=== PATIENT | female | born 1945 | race Caucasian/White ===

== ENCOUNTER 2016-12-22 13:12 | Inpatient (IN) | payer MEDICARE ==
[2016-12-22] MEDS ORDERED: ESTRADIOL 0.1 MG TD SCH (17:45)
[2016-12-22] MEDS: HYDROcodone/Acetaminophen 10/325 mg Tablet PO PRN (20:04)
[2016-12-22] MEDS: Zolpidem Tartrate 5 MG TAB PO PRN (21:09)
[2016-12-22] MEDS: Methocarbamol 500 MG TAB PO SCH (21:09)
[2016-12-22] MEDS: Aspirin 81 mg Enteric Coated Tablet PO SCH (21:09)
--- NOTE | 2016-12-22 23:09 | HP ---
DATE OF SERVICE: 12/22/2016 HISTORY OF PRESENT ILLNESS: The patient is a 71-year-old female with a past medical histo ry of hypertension, hyperlipidemia, hypothyroidism, and avascular necrosis of the left femoral head who had left hip replacement earlier this week at [facility] in [place]. The patient was transferred to [facility] for rehab. The patient states that her pain is already improved from prior to surgery . She is able to be weightbearing as tolerated with a walker currently. She will start working wit h physical therapy done here tomorrow. The patient expresses her gratitude for me coming to see her , states that she is very happy that she had the hip replacement. The patient was found to have thais scular necrosis of left femoral head after she developed hip pain following a [facility] Her pain has slowly worsened and after regard imaging this is noted the gianna khan has been having worked up with Orthopedic Surgery. PAST MEDICAL HISTORY: 1. Hypertension. 2. Hyperlipidemia. 3. Hypothyroidism. 4. Vitamin D deficiency. 5. Obesity. PAST SURGICAL HISTORY: 1. Left hip replacement. 2. ORIF for the right leg. 3. Rotator cuff repair. MEDICATIONS: 1. Methocarbamol 750 mg p.o. at bedtime p.r.n. pain. 2. Premarin 0.625 mg vaginal cream use as directed. 3. Estradiol 0.1 mg for 24 hours, transdermal twice a week patch. 4. Fluticasone nasal spray 2 sprays each nostril daily. 5. Hydrochlorothiazide 12.5 mg p.o. daily. 6. Nature-Throid 97.5 mg p.o. q.a.m. ALLERGIES: PERCODAN. FAMILY HISTORY: Unremarkable. SOCIAL HISTORY: Patient denies tobacco or alcohol use. REVIEW OF SYSTEMS: GENERAL: Negative for fever and chills. EYES: Negative for vision changes or eye pain. HEENT: Negative for sore throat, rhinorrhea or nasal congestion. CARDIOVASCULAR: Negative for chest pain, palpitations, orthopnea and PND. RESPIRATORY: Negative for shortness of breath, wheezing, cough. GASTROINTESTINAL: Negative for nausea, vomiting, and diarrhea. GENITOURINARY: Negative for dysuria, and polyuria. MUSCULOSKELETAL: Positive for left hip pain, negative for other joint pain. SKIN: Negative for rashes or lesions. NEUROLOGIC: Negative for syncope or seizure. PSYCHIATRIC: Negative for anxiety or depression. PHYSICAL EXAMINATION: VITAL SIGNS: Temperature 97.7, pulse 75, respiratory rate 20, O2 saturation 94% on room air, blood pressure 129/59. GENERAL: The patient is awake, alert, and oriented, in no acute distress. She is currently sitting up in chair, eating dinner. HEENT: Eyes, pupils are equal, round, and reactive to light and accommodation. Extraocular muscles intact. ENT: Oropharynx and nasopharynx without erythema or exudate. NECK: Supple without lymphadenopathy, thyromegaly or bruits. CARDIOVASCULAR: Regular rate and rhythm without murmurs, gallops, or rubs. LUNGS: Clear to auscultation bilaterally without wheezing or rhonchi. ABDOMEN: Soft, nontender, nondistended, bowel sounds present. EXTREMITIES: No clubbing or cyanosis. The patient has drainage in place in the left hip. MUSCULOSKELETAL: The patient has decreased range of motion in the left hip and tenderness upon palp ation, which is appropriate following surgery. SKIN: No rashes or jaundice noted. NEUROLOGIC: Cranial nerves II through XII are grossly intact. Deep tendon reflexes 2/4. Sensation is within normal limits. PSYCHIATRIC: The patient has an appropriate mood and affect during the exam. ASSESSMENT AND PLAN: 1. Status post left hip replacement: The patient is weightbearing as tolerated. She will have to be evaluated by PT and OT tomorrow morning. We will control pain with [place]. The patient has been able to tolerate that at [facility] for pain. 2. Deconditioning: As above. 3. Hypertension: Continue HCTZ and monitor blood pressure. 4. Hypothyroidism. Continue Nature-Throid and check a TSH. 5. Patient come on twice a day aspirin for DVT prophylaxis following surgery.
[2016-12-23] MEDS: HYDROcodone/Acetaminophen 10/325 mg Tablet PO PRN ×5 (04:28→21:56)
[2016-12-23 06:17] LABS: Hemoglobin 9.7 g/dL (12.0-16.0); Mean Corpuscular HGB CONC 32.1 g/dL (32.0-36.0); Mean Corpuscular Hemoglobin 32.1 pg (27.0-31.0); Mean Platelet Volume 8.6 fL (7.4-10.4); Platelet Count 188 thou/uL (130-400); Red Blood Cell (RBC) Count 3.01 mill/uL (4.20-5.40); White Blood Cell (WBC) Count 4.8 thou/uL (4.8-10.8)
[2016-12-23 06:18] LABS: Anisocytosis SLIGHT = 6-15 cells (100X) (0-5/hpf); Eosinophils 4 % (0-10); Hypochromia SLIGHT = 6-15 cells (100X) (0-5/hpf); Lymphocytes 29 % (21-51); MDiff Complete? YES; Macrocytosis SLIGHT = 6-15 cells (100X) (0-5/hpf); Monocytes 7 % (0-10); Neutrophil 60 % (42-75); PLT Morphology Comment Appears Adequate
[2016-12-23] MEDS: Aspirin 81 mg Enteric Coated Tablet PO SCH ×2 (08:41→21:57)
[2016-12-23] MEDS: Hydrochlorothiazide 25 MG TAB PO SCH (08:41)
[2016-12-23] MEDS: Fluticasone Propionate Nasal Spray 16 gm Bottle NASAL SCH (08:49)
[2016-12-23] MEDS: ESTRADIOL 0.1 MG TOP SCH (09:05)
--- NOTE | 2016-12-23 10:26 | PRG ---
DATE OF SERVICE: 12/23/2016 CHIEF COMPLAINT: Hip replacement. SUBJECTIVE: The patient is a 71-year-old female who is at [facility] following a hip replacem ent. The patient states that she was able to sleep well overnight with the help of Ambien. The pat ottoniel states that her pain is well controlled this morning and she is sitting up in a chair waiting f or physical therapy to begin. OBJECTIVE: VITAL SIGNS: Temperature 98.8, pulse 85, respiration rate 20, O2 sat 95% on room air, blood pressur e 140/95. GENERAL: The patient is awake, alert, and oriented, in no acute distress. CARDIOVASCULAR: Regular rate and rhythm without murmurs, gallops, or rubs. LUNGS: Clear to auscultation bilaterally without wheezing or rhonchi. ABDOMEN: Soft, nontender, nondistended with bowel sounds present. EXTREMITIES: There is no clubbing or cyanosis. There is stable swelling of the left lower extremit y, following surgery. LABORATORY: 1. CBC: WBC is 4.8, hemoglobin 9.7, hematocrit 30.1, platelets 188. 2. TSH 9.752. ASSESSMENT AND PLAN: 1. Status post left hip replacement: Continue pain control. 2. Acute anemia: This is likely secondary to blood loss from her left hip surgery. We will contin ue to monitor blood counts. 3. Hypothyroidism: The patient's TSH is elevated; however, looking back, she was not given her thy roid medicine when she was hospitalized after her surgery. We are now restarting her Nature-Thyroid and we will monitor her TSH once she has restarted her medication. 4. Hypertension: Blood pressure is slightly elevated this morning. We will continue hydrochloroth iazide and adjust as needed.
[2016-12-23] MEDS: Methocarbamol 500 MG TAB PO SCH (21:56)
[2016-12-23] MEDS: Zolpidem Tartrate 5 MG TAB PO PRN (22:00)
[2016-12-24] MEDS: NATURE THYROID PO SCH (06:20)
[2016-12-24] MEDS: Aspirin 81 mg Enteric Coated Tablet PO SCH ×2 (09:21→21:55)
[2016-12-24] MEDS: Hydrochlorothiazide 25 MG TAB PO SCH (09:21)
[2016-12-24] MEDS: Fluticasone Propionate Nasal Spray 16 gm Bottle NASAL SCH (09:22)
[2016-12-24] MEDS: HYDROcodone/Acetaminophen 10/325 mg Tablet PO PRN ×4 (09:27→21:55)
[2016-12-24] MEDS: Zolpidem Tartrate 5 MG TAB PO PRN (21:55)
[2016-12-24] MEDS: Methocarbamol 500 MG TAB PO SCH (21:55)
[2016-12-25] MEDS: NATURE THYROID PO SCH (07:00)
[2016-12-25] MEDS: Hydrochlorothiazide 25 MG TAB PO SCH (08:38)
[2016-12-25] MEDS: Aspirin 81 mg Enteric Coated Tablet PO SCH ×2 (08:38→20:48)
[2016-12-25] MEDS: Fluticasone Propionate Nasal Spray 16 gm Bottle NASAL SCH (08:41)
[2016-12-25] MEDS: HYDROcodone/Acetaminophen 10/325 mg Tablet PO PRN ×4 (09:36→23:01)
[2016-12-25] MEDS: Methocarbamol 500 MG TAB PO SCH (20:48)
--- NOTE | 2016-12-25 21:11 | PRG ---
DATE OF SERVICE: 12/25/2016 CHIEF COMPLAINT: Leg pain. SUBJECTIVE: The patient is a 71-year-old female who underwent left hip replacement last . The patient was seen this morning while sitting up in a chair. She had ambulated a lap around the nurses' station with her walker. She does still have difficulty lifting her left leg up into b ed without assistance. She rates her pain as a 6/10 and is asking for pain medicine at this time. OBJECTIVE: VITAL SIGNS: Temperature 98.0, pulse 70, respiration rate 20, O2 sat 98% on room air, blood pressur e 124/59. GENERAL: The patient is awake, alert, and oriented and appears to be in mild pain. CARDIOVASCULAR: Regular rate and rhythm without murmurs, gallops, or rubs. LUNGS: Clear to auscultation bilaterally without wheezing or rhonchi. EXTREMITIES: There is no clubbing or cyanosis. The patient does have tenderness in her left hip ne ar her incision. PSYCHIATRIC: The patient displays appropriate mood and affect during the exam. ASSESSMENT AND PLAN: 1. Status post left hip replacement. Patient will be given a dose of [place] this morning as her keri n has increased after walking. The patient was able to work with therapy on Monday and is doing wel l following hip replacement. 2. Generalized deconditioning: Patient will have therapy again tomorrow morning. 3. Hypertension: Blood pressure has improved. We will continue home blood pressure medications an d adjust as needed. 4. Hypothyroidism: The patient has resumed her home thyroid medication and is feeling much better. 5. The patient remains on aspirin twice a day for DVT prophylaxis as well as BRITTNY yair.
[2016-12-25] MEDS: Zolpidem Tartrate 5 MG TAB PO PRN (23:05)
[2016-12-26] MEDS: NATURE THYROID PO SCH (06:54)
[2016-12-26] MEDS: Aspirin 81 mg Enteric Coated Tablet PO SCH ×2 (08:37→21:59)
[2016-12-26] MEDS: Hydrochlorothiazide 25 MG TAB PO SCH (08:38)
[2016-12-26] MEDS: Fluticasone Propionate Nasal Spray 16 gm Bottle NASAL SCH (08:38)
[2016-12-26] MEDS: HYDROcodone/Acetaminophen 10/325 mg Tablet PO PRN ×4 (08:39→21:59)
--- NOTE | 2016-12-26 13:20 | PRG ---
DATE OF SERVICE: 12/26/2016. CHIEF COMPLAINT: Leg pain. SUBJECTIVE: The patient a 71-year-old female status post left hip replacement last week. She has done well over the weekend. This morning short with physical therapy and was able to go up two steps. She also had a shower with the help of therapy and she is sitting up in a chair, ready to eat her lunch. She complains of increased pain after working with therapy and is asking for pain pill at this moment. The patient also notes that at nighttime, she has been experiencing itching a nd feeling like her skin is crawling. She was getting Benadryl which she had this sensation up in [place] and that resolved with the symptoms. OBJECTIVE: VITAL SIGNS: Temperature 98.8, pulse 72, respirations were 18, O2 saturation 95% on room air, blood pressure 137/71. GENERAL: The patient is awake, alert, oriented and in no acute distress. HEENT: Oropharynx is without erythema or exudates. CARDIOVASCULAR: Regular rate and rhythm without murmurs, gallops or rubs. LUNGS: Clear to auscultation bilaterally without wheezing or rhonchi. ABDOMEN: Soft, nontender, nondistended, bowel sounds present. EXTREMITIES: There is no clubbing or cyanosis. The patient does have trace lower extremity edema b ilaterally. She has BRITTNY hose in place. ASSESSMENT AND PLAN: 1. Status post left hip replacement: The patient will continue on current pain medication and give n the dose 15 minutes early and she has just been worked quite hard with therapy. 2. Generalized deconditioning; The patient is slowly able to go further stay. She is able to go u p to two steps today and made a few laps around the nurses' station. 3. Hypothyroidism: The patient's overall mood is getting a little bit better. She has resumed her Nature-Thyroid. 4. Hypertension: The patient's blood pressure remains controlled on hydrochlorothiazide. 5. Pruritus: This is likely secondary to her pain medication. We will add Benadryl as needed for the itching and work to decrease pain medication as her pain slowly improves.
[2016-12-26] MEDS ORDERED: HYDROcodone/Acetaminophen 10/325 mg Tablet PO PRN (15:40)
[2016-12-26] MEDS: Zolpidem Tartrate 5 MG TAB PO PRN (21:59)
[2016-12-26] MEDS: Methocarbamol 500 MG TAB PO SCH (21:59)
[2016-12-26] MEDS: diphenhydrAMINE HCl 25 MG CAP PO PRN (21:59)
[2016-12-27] MEDS: NATURE THYROID PO SCH (06:53)
[2016-12-27] MEDS: Ondansetron ODT 4 MG TAB PO PRN (09:08)
[2016-12-27] MEDS: Aspirin 81 mg Enteric Coated Tablet PO SCH ×3 (09:12→22:42)
[2016-12-27] MEDS: Hydrochlorothiazide 25 MG TAB PO SCH (09:12)
[2016-12-27] MEDS: Fluticasone Propionate Nasal Spray 16 gm Bottle NASAL SCH (09:13)
[2016-12-27] MEDS: HYDROcodone/Acetaminophen 10/325 mg Tablet PO PRN ×3 (12:01→22:42)
[2016-12-27] MEDS: Methocarbamol 500 MG TAB PO SCH ×2 (22:40)
[2016-12-27] MEDS: diphenhydrAMINE HCl 25 MG CAP PO PRN (22:41)
[2016-12-27] MEDS: Zolpidem Tartrate 5 MG TAB PO PRN (22:42)
--- NOTE | 2016-12-28 00:33 | PRG ---
DATE OF SERVICE: 12/27/2016 CHIEF COMPLAINT: Today, fatigue. SUBJECTIVE: The patient is a 71-year-old female status post left hip replacement. Yester day, she was complaining of increased pain and that her [place] was not lasting long enough. I increa sed it to 2 tabs as needed and she took 2 tablets this morning prior to therapy and became nauseated and spent lot of the day in bed. She was able to work with therapy and they worked on car transfer s this morning. She notes that she has some occasional stomach upset as well. OBJECTIVE: VITAL SIGNS: Temperature 99.1, pulse 74, respiration rate is 20, O2 sat 96% on room air, blood pres sure 122/60, and T-max in the past 24 hours was 99.7. GENERAL: The patient is awake, alert, and oriented, in no acute distress. CARDIOVASCULAR: Regular rate and rhythm without murmurs, gallops, or rubs. LUNGS: Clear to auscultation bilaterally without wheezing or rhonchi. ABDOMEN: Soft, nontender, nondistended. Bowel sounds present. EXTREMITIES: There is no clubbing or cyanosis. BRITTNY hose are in place. PSYCHIATRIC: The patient displays an appropriate mood and affect. ASSESSMENT AND PLAN: 1. Status post left hip replacement. We will continue therapy and pain control. 2. Generalized deconditioning and muscle weakness: The patient is working with PT and OT while at the facility. We will continue this. 3. Hypothyroidism: We will continue home thyroid medications. 4. Gastroesophageal reflux disease: We will add a PPI, the patient is on twice a day aspirin. Amber dudley also asked the nurses to make certain that her aspirin is being given with food and counseled th e patient on this as well. 5. Constipation: The patient has a stool softener already ordered and we encouraged the patient to use that. I counseled on the fact that increasing her pain medication can lead to constipation. 6. Hypertension: Blood pressures controlled this morning.
[2016-12-28] MEDS: NATURE THYROID PO SCH (06:49)
[2016-12-28] MEDS: Hydrochlorothiazide 25 MG TAB PO SCH (08:17)
[2016-12-28] MEDS: Aspirin 81 mg Enteric Coated Tablet PO SCH ×2 (08:17→21:53)
[2016-12-28] MEDS: Fluticasone Propionate Nasal Spray 16 gm Bottle NASAL SCH (08:18)
[2016-12-28] MEDS: HYDROcodone/Acetaminophen 10/325 mg Tablet PO PRN ×4 (08:19→21:54)
[2016-12-28] MEDS: Docusate 100 MG CAP PO PRN (11:59)
[2016-12-28] MEDS ORDERED: Methocarbamol 500 MG TAB PO PRN (18:41)
--- NOTE | 2016-12-28 18:53 | PRG ---
DATE OF SERVICE: 12/28/2016 SUBJECTIVE: The patient is a 71-year-old female, status post left hip replacement who is at the [facility] for rehabilitation. The patient states that she had \\\\"awful day.\\\\" The patient is g etting muscle spasms in her left thigh following therapy. She worked on steps today. One hydrocodo ne is not controlling the patient's pain; however, two hydrocodone make her too tired and sedated to work with therapy. OBJECTIVE: VITAL SIGNS: Temperature 98.9, pulse 74, respiratory rate 20, O2 sat 97% on room air and blood pres sure 121/58. GENERAL: The patient is awake, alert and oriented, in no acute distress. CARDIOVASCULAR: Regular rate and rhythm without murmurs, gallops or rubs. LUNGS: Clear to auscultation bilaterally without wheezing or rhonchi. ABDOMEN: Soft, nontender and nondistended with bowel sounds present. EXTREMITIES: There is no clubbing or cyanosis. The patient has BRITTNY hose in place. PSYCHIATRIC: The patient displays an appropriate mood and affect during the exam. ASSESSMENT AND PLAN: 1. Status post left hip replacement: The patient is on aspirin for deep vein thrombosis prophylaxi s following surgery. I think the patient would benefit from an NSAID to help control her pain witho ut causing sedation, but we will monitor this closely. We will also add Robaxin that can be taken w ith therapy. It may help with the muscle spasms as well. 2. Deconditioning: The patient's strength is slowly improving and she is able to go increasingly f urther distances each day. 3. Hypertension: The patient's blood pressure is well controlled. 4. Hypothyroidism. We will continue her home medications. 5. Gastrointestinal prophylaxis: We will add a proton pump inhibitor as the patient has continued on aspirin. 6. Deep venous thrombosis prophylaxis with BRITTNY hose and aspirin b.i.d.
[2016-12-28] MEDS: Methocarbamol 500 MG TAB PO SCH (21:54)
[2016-12-28] MEDS: Zolpidem Tartrate 5 MG TAB PO PRN (21:54)
[2016-12-28] MEDS: diphenhydrAMINE HCl 25 MG CAP PO PRN (21:57)
[2016-12-29] MEDS: NATURE THYROID PO SCH (05:49)
[2016-12-29] MEDS: Hydrochlorothiazide 25 MG TAB PO SCH (08:32)
[2016-12-29] MEDS: Aspirin 81 mg Enteric Coated Tablet PO SCH ×2 (08:33→17:05)
[2016-12-29] MEDS: HYDROcodone/Acetaminophen 10/325 mg Tablet PO PRN ×2 (08:34→13:07)
[2016-12-29] MEDS: Ketorolac Tromethamine 30 MG/ML VIAL IM PRN (08:34)
[2016-12-29] MEDS: Fluticasone Propionate Nasal Spray 16 gm Bottle NASAL SCH (08:34)
[2016-12-29] MEDS: Milk Of Magnesia 30 ML UDCUP PO PRN (17:59)
[2016-12-29] MEDS: Polyethylene Glycol 3350 17 GM Packet PO PRN (18:02)
--- NOTE | 2016-12-29 19:18 | PRG ---
DATE OF SERVICE: 12/29/2016 CHIEF COMPLAINT: Constipation. SUBJECTIVE: The patient is a 71-year-old female with recent left hip replacement. The gianna khan noted that she has not had a bowel movement since Monday. She states that she feels fullness in her lower abdomen and the Colace is not helping her to have a bowel movement. The patient notes that her pain is much better today. She took Toradol shot this morning and she was able to particip ate in both rounds of physical therapy today without crying. She is much more comfortable this afte rnoon and notes that her mood has also improved. OBJECTIVE: VITAL SIGNS: Temperature 99.0, pulse 76, respiratory rate 20, O2 saturation 94% on room air, blood pressure 118/66. GENERAL: The patient is awake, alert, and oriented and in no acute distress. CARDIOVASCULAR: Regular rate and rhythm without murmurs, gallops, or rubs. LUNGS: Clear to auscultation bilaterally without wheezing or rhonchi. ABDOMEN: Soft, nontender, nondistended with bowel sounds present. EXTREMITIES: There is no clubbing or cyanosis. Leobardo hose were in place. PSYCHIATRIC: The patient displays an appropriate mood and affect during the exam. ASSESSMENT AND PLAN: 1. Status post left hip replacement: Pain is much better with 1 tab [place] and IM Toradol that was tried this morning. We will continue this. 2. Generalized deconditioning and muscle weakness: The patient has been recertified and will likel y go home sometime next week. She is working on being able to walk up and down steps and increase h er mobility. 3. Hypertension: Patient's blood pressure is controlled. 4. Constipation: We will add milk of magnesia and MiraLax for patient to help with constipation. 5. Hypothyroidism: Continue home medications. 6. Gastrointestinal prophylaxis: Will continue Protonix. 7. Deep venous thrombosis prophylaxis. She is on aspirin b.i.d. per Ortho.
[2016-12-29] MEDS: Methocarbamol 500 MG TAB PO SCH (22:25)
[2016-12-30] MEDS: Ketorolac Tromethamine 30 MG/ML VIAL IM PRN ×2 (02:43→12:30)
[2016-12-30] MEDS: NATURE THYROID PO SCH (06:46)
[2016-12-30] MEDS: Ondansetron ODT 4 MG TAB PO PRN ×2 (07:07→12:31)
[2016-12-30] MEDS: Fluticasone Propionate Nasal Spray 16 gm Bottle NASAL SCH (08:35)
[2016-12-30] MEDS: ESTRADIOL 0.1 MG TOP SCH (08:37)
[2016-12-30] MEDS: Aspirin 81 mg Enteric Coated Tablet PO SCH ×2 (08:59→17:07)
[2016-12-30] MEDS: Hydrochlorothiazide 25 MG TAB PO SCH (09:00)
[2016-12-30] MEDS: Methocarbamol 500 MG TAB PO SCH (22:17)
[2016-12-30] MEDS: HYDROcodone/Acetaminophen 10/325 mg Tablet PO PRN (22:18)
[2016-12-30] MEDS: Zolpidem Tartrate 5 MG TAB PO PRN (22:18)
[2016-12-31] MEDS: NATURE THYROID PO SCH (06:33)
[2016-12-31] MEDS: Aspirin 81 mg Enteric Coated Tablet PO SCH ×2 (08:10→17:05)
[2016-12-31] MEDS: Polyethylene Glycol 3350 17 GM Packet PO PRN (09:17)
[2016-12-31] MEDS: Hydrochlorothiazide 25 MG TAB PO SCH (09:20)
[2016-12-31] MEDS: Fluticasone Propionate Nasal Spray 16 gm Bottle NASAL SCH (09:21)
[2016-12-31] MEDS: Milk Of Magnesia 30 ML UDCUP PO PRN (12:04)
[2016-12-31] MEDS: Zolpidem Tartrate 5 MG TAB PO PRN (21:57)
[2016-12-31] MEDS: diphenhydrAMINE HCl 25 MG CAP PO PRN (21:57)
[2016-12-31] MEDS: Methocarbamol 500 MG TAB PO SCH (21:58)
[2017-01-01] MEDS: Ketorolac Tromethamine 30 MG/ML VIAL IM PRN (02:55)
[2017-01-01] MEDS: NATURE THYROID PO SCH (06:35)
[2017-01-01] MEDS: Aspirin 81 mg Enteric Coated Tablet PO SCH ×2 (08:00→17:08)
[2017-01-01] MEDS ORDERED: Milk Of Magnesia 30 ML UDCUP PO PRN (08:47)
[2017-01-01] MEDS: Hydrochlorothiazide 25 MG TAB PO SCH (09:02)
[2017-01-01] MEDS: Fluticasone Propionate Nasal Spray 16 gm Bottle NASAL SCH (09:04)
[2017-01-01 09:05] LABS: #Basophils 0.1 thou/uL (0.0-0.2); #Eosinphils 0.2 thou/uL (0.0-0.7); #Lymphocytes 1.3 thou/uL (1.20-3.40); #Monocytes 0.4 thou/uL (0.11-0.59); #Neutrophils 3.5 thou/uL (1.40-6.50); %Basophils 1.2 % (0.0-1.0); %Eosinophils 3.8 % (0.0-10.0); %Lymphocytes 23.7 % (21.0-51.0); %Monocytes 7.8 % (0.0-10.0); %Neutrophils 63.5 % (42.0-75.0); Mean Corpuscular HGB CONC 32.1 g/dL (32.0-36.0); Mean Corpuscular Volume 99.4 fl (81.0-99.0); Mean Platelet Volume 7.2 fL (7.4-10.4); Platelet Count 436 thou/uL (130-400); RBC Distribution Width 12.8 % (11.5-14.5); Red Blood Cell (RBC) Count 3.44 mill/uL (4.20-5.40); White Blood Cell (WBC) Count 5.5 thou/uL (4.8-10.8)
[2017-01-01 09:40] LABS: Anion Gap 14 mmol/L (10-20); BUN (Urea Nitrogen) 13 mg/dL (9.8-20.1); Calc. Creatinine Clearance 111 mL/min (70-130); Calcium 8.9 mg/dL (7.8-10.44); Carbon Dioxide 28 mmol/L (23-31); Chloride 100 mmol/L (98-107); Estimated GFR-MDRD 61; Glucose 119 mg/dL (80-115); Potassium 3.9 mmol/L (3.5-5.1); Sodium 138 mmol/L (136-145)
--- NOTE | 2017-01-01 12:18 | PRG ---
DATE OF SERVICE: 01/01/2017 CHIEF COMPLAINT: Constipation. SUBJECTIVE: The patient is a 71-year-old female status post left hip replacement. The pa erin has complained of constipation for the past several days. She has tried Colace, prune juice, Milk of Magnesia, glycerin suppositories and MiraLax without success. The patient states that she h as started taking some pain medication last night, but she did not want additional constipation. Sh e also notes that her appetite is poor, because she has not had a bowel movement. OBJECTIVE: VITAL SIGNS: Temperature 98.6, pulse 78, respiration rate 20, O2 sat 96% on room air, blood pressur e 117/58. GENERAL: The patient is awake, alert, and oriented, in no acute distress. CARDIOVASCULAR: Regular rate and rhythm without murmurs, gallops, or rubs. LUNGS: Clear to auscultation bilaterally without wheezing or rhonchi. ABDOMEN: Soft, nontender, nondistended with bowel sounds present. EXTREMITIES: There is no clubbing or cyanosis. ASSESSMENT AND PLAN: 1. Status post left hip replacement: The patient will resume physical therapy in the morning. The goal discharge date is probably on Monday as long as the patient is meeting milestones. Patient d oes not want to take [place] anymore, we will try to start Tylenol #3 and to see if that controls her pain. 2. Constipation: We will add lactulose today to see if that helps her to have a bowel movement and adjust dosing time with some of the other medications. 3. Hypertension: Blood pressure is well controlled. Continue to monitor. 4. Hypothyroidism: Continue home medication. 5. Gastrointestinal prophylaxis with Protonix. 6. Deep venous thrombosis prophylaxis with aspirin b.i.d. per Orthopedics. 7. We will check her CBC and a BMP this morning.
[2017-01-01] MEDS: Acetaminophen/Codeine 30-300mg Tablet PO PRN (21:27)
[2017-01-01] MEDS: Methocarbamol 500 MG TAB PO SCH (21:28)
[2017-01-01] MEDS: Zolpidem Tartrate 5 MG TAB PO PRN (21:29)
[2017-01-01] MEDS: diphenhydrAMINE HCl 25 MG CAP PO PRN (21:29)
[2017-01-02] MEDS: NATURE THYROID PO SCH (06:01)
[2017-01-02] MEDS: Aspirin 81 mg Enteric Coated Tablet PO SCH ×2 (08:07→17:23)
[2017-01-02] MEDS: Ketorolac Tromethamine 30 MG/ML VIAL IM PRN (08:07)
[2017-01-02] MEDS: Hydrochlorothiazide 25 MG TAB PO SCH (08:08)
[2017-01-02] MEDS: Fluticasone Propionate Nasal Spray 16 gm Bottle NASAL SCH (08:14)
[2017-01-02] MEDS: Polyethylene Glycol 3350 17 GM Packet PO PRN (17:24)
--- NOTE | 2017-01-02 17:48 | PRG ---
DATE OF SERVICE: 01/02/2017 SUBJECTIVE: The patient is a 71-year-old female status post left hip replacement. The pa erin's main complaint in the past several days has been constipation. With the addition of lactulo se yesterday, the patient was finally able to have a large bowel movement. Today she is feeling muc h better at this point in time. The patient is no longer going to be taking [place] which she does no t like the side effects. She did try Tylenol #3, but states that it does not do enough help her keri n, but a Toradol shot prior to her working with therapy is helping to control her pain. The patient is wanting to go home tomorrow, if she does well with therapy today. OBJECTIVE: VITAL SIGNS: Temperature 97.3, pulse 67, respiration rate 17, O2 sat 96% on room air, blood pressur e 135/62. GENERAL: The patient is awake, alert, and oriented, in no acute distress. CARDIOVASCULAR: Regular rate and rhythm without murmurs, gallops, or rubs. LUNGS: Clear to auscultation bilaterally without wheezing or rhonchi. ABDOMEN: Soft, nontender, nondistended with bowel sounds present. EXTREMITIES: There is no clubbing or cyanosis. PSYCHIATRIC: The patient displays an appropriate mood and affect. LABORATORY: 1. CBC: WBCs 5.5, hemoglobin 11.0, hematocrit 34.2, platelets 436,000. 2. BMP: Sodium 138, potassium 3.9, chloride 100, bicarb 28, BUN 13, creatinine 0.91, glucose 119, calcium 8.9. ASSESSMENT AND PLAN: 1. Status post left hip replacement: We will continue Tylenol #3 and Toradol for pain control. patient's kidney function is stable. The patient will continue physical therapy. I had a long di scussion about the benefits of home health versus outpatient rehabilitation. She is going to try to see if her friends can help her get to outpatient physical therapy, but if that follows through, we will obtain home health, so that she can do therapy at home. 2. Deconditioning and generalized muscle weakness: The patient's strength is slowly starting to re turn, she is able to ambulate more. She states that she can go up multiple steps, but she still has difficulty going down steps. 3. Constipation: This is improved. She will continue Colace and MiraLax and her other medications are on an as needed basis. 4. Hypertension: Blood pressure remains controlled. 5. Hypothyroidism: We will continue home medications. 6. Gastrointestinal prophylaxis with Protonix. 7. DVT prophylaxis with b.i.d., aspirin per Orthopedics.
[2017-01-02] MEDS: Acetaminophen/Codeine 30-300mg Tablet PO PRN (21:27)
[2017-01-02] MEDS: Zolpidem Tartrate 5 MG TAB PO PRN (21:27)
[2017-01-02] MEDS: Methocarbamol 500 MG TAB PO SCH (21:27)
[2017-01-02] MEDS: diphenhydrAMINE HCl 25 MG CAP PO PRN (21:27)
[2017-01-03] MEDS: NATURE THYROID PO SCH (06:07)
[2017-01-03] MEDS ORDERED: Ketorolac Tromethamine 30 MG/ML VIAL ONE (08:11)
[2017-01-03] MEDS ORDERED: Ketorolac Tromethamine 30 MG/ML VIAL IM SCH (08:15)
[2017-01-03] MEDS: Hydrochlorothiazide 25 MG TAB PO SCH (08:17)
[2017-01-03] MEDS: Docusate 100 MG CAP PO PRN (08:17)
[2017-01-03] MEDS: Polyethylene Glycol 3350 17 GM Packet PO PRN (08:18)
[2017-01-03] MEDS: Fluticasone Propionate Nasal Spray 16 gm Bottle NASAL SCH (08:18)
[2017-01-03] MEDS: Aspirin 81 mg Enteric Coated Tablet PO SCH ×2 (08:18→17:02)
--- NOTE | 2017-01-03 13:17 | PRG ---
DATE OF SERVICE: 01/03/2017 SUBJECTIVE: The patient is a 71-year-old female status post left hip replacement who is a t [facility] for rehab. The patient states that her pain is improved with Toradol and Tylenol 3 in comb ination, but Tylenol #3 alone does not control it. She is able to walk up and down approximately 3 steps, but she has 5 steps at home that she has got to be able to maneuver. She will be working wit h therapy again today. She also complains of some lower abdominal cramping and has asked for a dose of MiraLax today. OBJECTIVE: VITAL SIGNS: Temperature 98.0, pulse 68, respiration rate 19, O2 sat 95% on room air, blood pressur e 129/65. GENERAL: The patient is awake, alert, oriented and in no acute distress. CARDIOVASCULAR: Regular rate and rhythm without murmurs, gallops, or rubs. LUNGS: Clear to auscultation bilaterally without wheezing or rhonchi. ABDOMEN: Soft, nontender, nondistended with bowel sounds present. EXTREMITIES: The patient has an ice pack in place on her left hip. There is no clubbing or cyanosi s. ASSESSMENT AND PLAN: 1. Status post left hip replacement. The patient will continue physical therapy. I had a conferen ce with the physical therapist and it was agreed that the patient likely needs another couple of day s of therapy and we will set a new discharge date of . 2. Deconditioning: The patient will need home health for about 2 weeks as an outpatient before tra nsitioning to outpatient physical therapy. This will be set up. 3. Constipation: The patient had a bowel movement Monday evening, but continues to have some abdom inal cramping. Discussed we will continue p.r.n. meds for constipation. 4. Hypothyroidism: Continue home medications. 5. Hypertension, well controlled. 6. Gastrointestinal prophylaxis: With Protonix. 7. DVT prophylaxis with aspirin b.i.d.
[2017-01-03 15:32] VITALS: BMI 44.1
[2017-01-03] MEDS: Acetaminophen/Codeine 30-300mg Tablet PO PRN (20:55)
[2017-01-03] MEDS: Methocarbamol 500 MG TAB PO SCH (20:57)
[2017-01-03] MEDS: Zolpidem Tartrate 5 MG TAB PO PRN (20:57)
[2017-01-03] MEDS: diphenhydrAMINE HCl 25 MG CAP PO PRN (20:58)
[2017-01-04] MEDS: NATURE THYROID PO SCH (06:08)
[2017-01-04] MEDS: Ketorolac Tromethamine 30 MG/ML VIAL IM PRN (07:57)
[2017-01-04] MEDS: Aspirin 81 mg Enteric Coated Tablet PO SCH ×2 (08:08→17:15)
[2017-01-04] MEDS: Hydrochlorothiazide 25 MG TAB PO SCH (08:59)
[2017-01-04] MEDS: Fluticasone Propionate Nasal Spray 16 gm Bottle NASAL SCH (09:01)
--- NOTE | 2017-01-04 10:51 | PRG ---
DATE OF SERVICE: 01/04/2017 SUBJECTIVE: The patient is a 71-year-old female status post left hip replacement. The patient is doing well with physical therapy and planning to go home tomorrow. The patient was seen this morning while working on walking up and down the ramp outside the hospital with the help of PT. She states that she is still having some difficulty with constipation. She notes that she has not had a bowel movement since Monday, but has not wanted to take any extra medication this morning until after therapy. The patient does not want that to interfere with her therapy. OBJECTIVE: VITAL SIGNS: Temperature 98.3, pulse 68, respiration rate 18, O2 sat 97% on room air, blood pressure 131/60. GENERAL: The patient is awake, alert, and oriented, in no acute distress. CARDIOVASCULAR: Regular rate and rhythm without murmurs, gallops, or rubs. LUNGS: Clear to auscultation bilaterally without wheezing or rhonchi. ABDOMEN: Soft with bowel sounds present. Nondistended and nontender to palpation. EXTREMITIES: There is no clubbing or cyanosis. PSYCHIATRIC: The patient displays appropriate mood and affect. ASSESSMENT/PLAN: 1. Status post left hip replacement: The patient will continue physical therapy and pain control with Toradol and Tylenol #3. 2. Generalized deconditioning: The patient is slowly able to go further distances each day with therapy. She will be discharged home with home health to do physical therapy and that will be followed by outpatient PT. 3. Constipation: The patient is already taking Colace and MiraLax daily and she will try a dose of lactulose after her physical therapy session. 4. Hypertension: Blood pressure is well controlled. 5. Hypothyroidism: Continue home medications. 6. Deep venous thrombosis prophylaxis: The patient continues on aspirin b.i.d. per ortho. 7. Gastrointestinal prophylaxis with Protonix. MTDD
[2017-01-04] MEDS: Polyethylene Glycol 3350 17 GM Packet PO PRN (12:04)
[2017-01-04] MEDS: Methocarbamol 500 MG TAB PO SCH (22:25)
[2017-01-04] MEDS: Acetaminophen/Codeine 30-300mg Tablet PO PRN (22:27)
[2017-01-04] MEDS: Zolpidem Tartrate 5 MG TAB PO PRN (22:27)
[2017-01-04] MEDS: diphenhydrAMINE HCl 25 MG CAP PO PRN (22:28)
[2017-01-05] MEDS: NATURE THYROID PO SCH ×2 (06:00→06:25)
[2017-01-05 07:29] VITALS: BP 122/58; TEMP 96.5
[2017-01-05] MEDS: Ketorolac Tromethamine 30 MG/ML VIAL IM PRN (07:38)
[2017-01-05] MEDS: Aspirin 81 mg Enteric Coated Tablet PO SCH (08:00)
[2017-01-05] MEDS: Hydrochlorothiazide 25 MG TAB PO SCH (09:07)
[2017-01-05] MEDS: Fluticasone Propionate Nasal Spray 16 gm Bottle NASAL SCH (09:08)
--- NOTE | 2017-01-05 19:09 | DIS ---
DATE OF ADMISSION: 12/22/2016 DATE OF DISCHARGE: 01/05/2017 DISCHARGE DIAGNOSES: 1. Left hip replacement. 2. Constipation secondary to pain medications. 3. Generalized deconditioning. 4. Hypertension. 5. Hypothyroidism. HOSPITAL COURSE: The patient is a 71-year-old female who was admitted to [facility] for physical therapy following a left hip replacement surgery due to avascular necrosis of the hip . During the course of the hospitalization, the patient became constipated; thought to be secondary to her pain medications. She was given multiple medications to help relieve the constipation. The patient worked with therapy twice a day Monday through Monday and is able to ambulate with the help of a walker and is able to go up and down steps. The patient has home health at the [facility] set up to start tomorrow and has an appointment with Dr. Crandall next week as well. The patient w as scheduled with me within a week for followup. Regarding pain control in the outpatient setting, the patient will be treated with Tylenol #3 and naproxen. DISCHARGE MEDICATIONS: 1. Tylenol #3, 1-2 tabs p.o. q.6 hours p.r.n. pain. 2. Vitamin D3 5000 units p.o. daily. 3. Colace 100 mg p.o. b.i.d. p.r.n. constipation. 4. Robaxin 1500 mg p.o. at bedtime. 5. Estradiol 0.1 mg patch q.7 days. 6. Nature-Throid 97.5 mg p.o. q.a.m. 7. MiraLax 17 grams p.o. daily p.r.n. constipation. DISCHARGE INSTRUCTIONS AND PLAN: 1. Disposition: The patient will be discharged home this afternoon in stable condition. 2. Diet: Regular. 3. Activity: Ad-charley. 4. Followup: The patient will follow up with Dr. Crandall on Monday and myself next week as well. [facility] is being set up for the patient to have PT at home for about 2 weeks and then transition to outpatient physical therapy.
== END 2017-01-05 14:36 | disposition home health service (06) | DRG 560 ==
LOC: NAV ACUTE 13:12
PROVIDERS: ADMIT Family Medicine; ATTEND Family Medicine
DX: Z47.1 Aftercare following joint replacement surgery (principal); D62 Acute posthemorrhagic anemia; I10 Essential (primary) hypertension; Z96.642 Presence of left artificial hip joint; E03.9 Hypothyroidism, unspecified; E78.5 Hyperlipidemia, unspecified; M62.81 Muscle weakness (generalized); L29.9 Pruritus, unspecified; K59.03 Drug induced constipation; T50.995A Adverse effect of other drugs, medicaments and biological substances, initial encounter
CPT/HCPCS: 80048; 84443; 85025; J1885; Q0162

== ENCOUNTER 2019-01-10 10:51 | Outpatient (CLI) | payer MEDICARE ==
--- NOTE | 2019-01-10 11:16 | RAD ---
EXAM: 3 views of the left shoulder HISTORY: Shoulder pain COMPARISON: None FINDINGS: There is no evidence of acute fracture or dislocation. Mild degenerative change is seen in the glenohumeral joint. No soft tissue swelling is seen. The visualized thorax is unremarkable. IMPRESSION: No evidence of acute osseous abnormality.
== END 2019-01-10 10:52 | disposition home or self-care (01) ==
LOC: NAV RAD 10:51
PROVIDERS: ATTEND Family Medicine
DX: M25.512 Pain in left shoulder (principal)

== ENCOUNTER 2023-11-09 10:01 | Outpatient (CLI) | payer MEDICARE | END 2023-11-09 10:02 | disposition home or self-care (01) | LOC: NAV RAD 10:01 | PROVIDERS: ATTEND Family Medicine | DX: M51.16 Intervertebral disc disorders with radiculopathy, lumbar region (principal); M47.816 Spondylosis without myelopathy or radiculopathy, lumbar region; M16.11 Unilateral primary osteoarthritis, right hip; M47.817 Spondylosis without myelopathy or radiculopathy, lumbosacral region; Z96.642 Presence of left artificial hip joint | CPT/HCPCS: 72100; 72170 ==